=== PATIENT | male | born 1930 | race Caucasian/White ===

== ENCOUNTER → 2017-09-01 | Outpatient (CLI) | payer MEDICARE, BC ==
[~2017-09-01] MED LIST: ALEV220C; ASPI81 PO; CELE100C PO; LIPI80TA16 PO; TAMS0.4C67 PO
--- NOTE | 2017-09-02 14:16 | RADRPT ---
EXAM DATE/TIME: 09/01/2017 15:12 [place] COMPARISON : No previous studies available for comparison. INDICATIONS : Patient with endoleak HISTORY OF PRESENT ILLNESS: 86 year-old with endovascular stent graft repair for abdominal aortic aneurysm. Right iliac limb is occluded with a patent [id number] fem-fem bypass. 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 IMAGING STUDIES: Most recent CT was reviewed. A small type II endoleak has developed after many years no identifiable endoleak. Unfortunately, the position of the endoleak is not accessible from a percutaneous approach. In addition, the leak appears to be coming from small lumbar vessels and therefore, occlusion of the MAUDE from the SMA with would be ineffective. As such, I do not see a percutaneous option for treatmen t. ASSESSMENT: Interval development of a very small type II endoleak. No percutaneous or endovascular options for tr eatment, however. PLAN: Recommend continued screening of the abdominal aortic aneurysm with yearly CTA. Jose Porter MD on September 02, 2017 at 14:09 Board Certified Radiologist. This report was verified electronically.
== END ==
LOC: HRAD 14:52
PROVIDERS: ATTEND Surgery Vascular Surgery
DX: T82.898A Other specified complication of vascular prosthetic devices, implants and grafts, initial encounter (principal); Y83.8 Other surgical procedures as the cause of abnormal reaction of the patient, or of later complication, without mention of misadventure at the time of the procedure